=== PATIENT | male | born 1985 | race Caucasian/White ===

== ENCOUNTER 2019-03-14 19:18 | Emergency (ER) | payer MEDICAID, OTHER ==
[2019-03-14] MEDS: KETOROLAC 30 MG INJ IM (21:04)
== END 2019-03-14 21:40 | disposition home or self-care (01) ==
LOC: FTE 19:18
DX: S61.311A Laceration without foreign body of left index finger with damage to nail, initial encounter (principal); X78.8XXA Intentional self-harm by other sharp object, initial encounter; Y92.9 Unspecified place or not applicable
CPT/HCPCS: 96372; 99284-25; J1885

== ENCOUNTER 2019-03-21 10:58 | Emergency (ER) | payer MEDICAID | END 2019-03-21 12:44 | disposition home or self-care (01) | LOC: FTE 12:44 | DX: S61.211D Laceration without foreign body of left index finger without damage to nail, subsequent encounter (principal); F17.210 Nicotine dependence, cigarettes, uncomplicated; X58.XXXD Exposure to other specified factors, subsequent encounter | CPT/HCPCS: 99283; Z7502 ==